=== PATIENT | female | born 1980 ===

== ENCOUNTER 2018-10-31 14:25 | Outpatient (CLI) | payer OTHER | END 2018-10-31 14:26 | disposition home or self-care (01) | LOC: SONOGRAMA 14:25 | DX: N20.0 Calculus of kidney (principal); R31.9 Hematuria, unspecified; E55.9 Vitamin D deficiency, unspecified; N60.11 Diffuse cystic mastopathy of right breast; N60.12 Diffuse cystic mastopathy of left breast; R31.21 Asymptomatic microscopic hematuria ==

== ENCOUNTER 2025-05-24 09:11 | Outpatient (CLI) | payer OTHER | END 2025-05-24 09:16 | disposition home or self-care (01) | LOC: SONOGRAMA 09:11 | PROVIDERS: ATTEND Obstetrics & Gynecology Gynecology | DX: N84.0 Polyp of corpus uteri (principal) ==